=== PATIENT | female | born 1940 | race Caucasian/White ===

== ENCOUNTER 2016-04-05 15:46 | Emergency (ER) | payer OTHER ==
[2016-04-05] MEDS ORDERED: ALBUTEROL HFA INH ONE (18:07)
== END 2016-04-05 18:10 | disposition home or self-care (01) ==
LOC: ER 15:46
DX: J11.1 Influenza due to unidentified influenza virus with other respiratory manifestations (principal); I10 Essential (primary) hypertension; I48.91 Unspecified atrial fibrillation
CPT/HCPCS: 71020; 94640